=== PATIENT | female | born 1945 | race Caucasian/White ===

== ENCOUNTER 2017-08-20 10:00 | Emergency (ER) | payer OTHER, MEDICARE ==
[2017-08-20 10:10] VITALS: BP 134/61; PULSE 75; TEMP 97.7; BMI 17.8
--- NOTE | 2017-08-20 10:11 | PDOC ---
History of Present Illness - General Chief Complaint: Injury Stated Complaint: RT FOOT INJURY Time Seen by Provider: 08/20/17 10:10 - History of Present Illness Initial Comments: 08/20/17 10:12 Chief complaint: Injury to right foot History of present illness: Patient inadvertently kicked the leg of a table, injuring the dorsum of the foot. Complains of pain localized to the dorsum of the foot, pain with weightbearing and ambulation. Review of systems: No other injuries. Did not fall. No distal numbness tingling pain or weakness. Physical exam: There is approximately 2 cm area of swelling and tenderness with mild erythema, mid dorsum of the right foot. No deformity. Pulses full. No distal sensory or motor deficits. No other injuries noted to the foot, toes, ankle, calf, knee, thigh, or hip. No head or neck injuries. Impression: Contusion, rule out fracture X-ray and further orthopedic management depending on results. Past History - Past Medical History Allergies/Adverse Reactions: Allergies Allergy/AdvReac Type Severity Reaction Status Date / Time No Known Allergies Allergy Verified 08/20/17 10:04 Home Medications: Ambulatory Orders Atorvastatin Ca [Lipitor -] 10 mg PO DAILY 05/22/13 Salmeterol/Fluticasone [Advair 250Mcg/50Mcg] 2 inh PO BID 05/22/13 Bp Medication 1 tab PO AM 08/20/17 Bp Medication Number 2 1 tab PO HS 08/20/17 Anemia: No Asthma: Yes Cancer: No Cardiac Disorders: No CVA: No COPD: Yes CHF: No Dementia: No Diabetes: No GI Disorders: No Disorders: No HTN: Yes Hypercholesterolemia: Yes Liver Disease: No Seizures: No Thyroid Disease: No - Surgical History Abdominal Surgery: No Appendectomy: No Cardiac Surgery: No Cholecystectomy: No Lung Surgery: No Neurologic Surgery: No Orthopedic Surgery: Yes (RIGHT KNEE ARTHROSCOPY, RIGHT ELBOW TENDON REPAIR) - Suicide/Smoking/Psychosocial Hx Smoking History: Current every day smoker Have you smoked in the past 12 months: Yes Number of Cigarettes Smoked Daily: 15 Information on smoking cessation initiated: Yes 'Breaking Loose' booklet given: 08/20/17 Hx Alcohol Use: (occasional) Drug/Substance Use Hx: No Substance Use Type: None Hx Substance Use Treatment: No *Physical Exam - Vital Signs Last Vital Signs Temp Pulse Resp BP Pulse Ox 97.7 F 75 18 134/61 97 08/20/17 10:00 08/20/17 10:00 08/20/17 10:00 08/20/17 10:00 08/20/17 10:00 Medical Decision Making - Medical Decision Making 08/20/17 10:16 X-ray: Negative Josh applied, patient more comfortable, no distal numbness tingling or pain in the toes. Good toe motion. *DC/Admit/Observation/Transfer Diagnosis at time of Disposition: Contusion of right foot Qualifiers: Encounter type: initial encounter Qualified Code(s): S90.31XA - Contusion of right foot, initial encounter - Discharge Dispostion Disposition: HOME Condition at time of disposition: Stable Admit: No - Referrals Referrals: Bala Sparrow MD [Staff Physician] - 1 week - Patient Instructions Printed Discharge Instructions: DI for Contusion, How to Apply an Josh Wrap Additional Instructions: Rest, ice, elevate, Tylenol. Josh wrap as directed. Recheck if pain or swelling persists one-week orthopedic podiatrist as recommended. - Post Discharge Activity
== END 2017-08-20 11:03 | disposition home or self-care (01) ==
LOC: FER 10:00
DX: S90.31XA Contusion of right foot, initial encounter (principal); W22.03XA Walked into furniture, initial encounter; Y93.89 Activity, other specified; Y92.009 Unspecified place in unspecified non-institutional (private) residence as the place of occurrence of the external cause; E78.00 Pure hypercholesterolemia, unspecified; I10 Essential (primary) hypertension; J44.9 Chronic obstructive pulmonary disease, unspecified; F17.210 Nicotine dependence, cigarettes, uncomplicated
CPT/HCPCS: 73630-TC-RT; 99282-25

== ENCOUNTER 2018-08-09 13:23 | Emergency (ER) | payer OTHER, MEDICARE ==
[2018-08-09 13:35] VITALS: BP 152/57; TEMP 98.6; BMI 17.4
--- NOTE | 2018-08-09 15:14 | PDOC ---
History of Present Illness - General Chief Complaint: Pain Stated Complaint: rt foot no circulation Time Seen by Provider: 08/09/18 14:06 History Source: Patient Exam Limitations: No Limitations - History of Present Illness Initial Comments: 08/09/18 16:40 72 yo F with a hx of peripheral vascular disease recently started on cilostazol , COPD (lifelong smoker), HLD, and HTN presents to the emergency department with a cold right foot with 1st toe discoloration for the past 2 days. Per the patient, she states she was diagnosed with PVD 3-4 weeks ago due to right leg claudication. She states her right toe has turned black and returned to normal color intermittently throughout the 2 days. Her foot has felt "ice". Denies the following: fever, chills, SOB, chest pain, nausea, vomiting, visual changes, hx of afib, ears/nose/throat pain, abdominal pain, dysuria, hematuria, diarrhea, and hematochezia. Meds: cilostazol, amlodipine, advair, spirivia, atorvastatin, losartan Allergies: NKDA Social: Denies alcohol and substance abuse. 08/09/18 16:48 Past History - Past Medical History Allergies/Adverse Reactions: Allergies Allergy/AdvReac Type Severity Reaction Status Date / Time No Known Allergies Allergy Verified 08/09/18 13:32 Home Medications: Ambulatory Orders Atorvastatin Ca [Lipitor -] 10 mg PO DAILY 05/22/13 Amlodipine Besylate 5 mg PO ONCE 08/09/18 Aspirin 81 mg PO DAILY #30 tab.chew 08/09/18 Clopidogrel Bisulfate [Plavix] 75 mg PO DAILY #30 tablet 08/09/18 Fluticasone/Salmeterol [Advair Hfa 115-21 Mcg Inhaler] 1 inh PO BID 08/09/18 Losartan Potassium 25 mg PO ONCE 08/09/18 Tiotropium [place] [Spiriva] 1 inh PO DAILY 08/09/18 Anemia: No Asthma: Yes Cancer: No Cardiac Disorders: No CVA: No COPD: Yes CHF: No Dementia: No Diabetes: No GI Disorders: No Disorders: No HTN: Yes Hypercholesterolemia: Yes Liver Disease: No Seizures: No Thyroid Disease: No - Surgical History Abdominal Surgery: No Appendectomy: No Cardiac Surgery: No Cholecystectomy: No Lung Surgery: No Neurologic Surgery: No Orthopedic Surgery: Yes (RIGHT KNEE ARTHROSCOPY, RIGHT ELBOW TENDON REPAIR) - Immunization History Immunization Up to Date: Yes - Suicide/Smoking/Psychosocial Hx Smoking History: Current every day smoker Have you smoked in the past 12 months: Yes Number of Cigarettes Smoked Daily: 10 Information on smoking cessation initiated: No 'Breaking Loose' booklet given: 08/20/17 Hx Alcohol Use: No Drug/Substance Use Hx: No Substance Use Type: None Hx Substance Use Treatment: No Review of Systems - Review of Systems Able to Perform ROS?: Yes Is the patient limited Macedonian proficient: No Constitutional: No: Chills, Diaphoresis, Fever, Weakness HEENTM: No: Eye Pain, Recent change in vision, Ear Pain, Nose Pain, Throat Pain , Throat Swelling, Mouth Pain Respiratory: No: Cough, Shortness of Breath, SOB with Exertion, Hemoptysis Cardiac (ROS): No: Chest Pain, Lightheadedness, Palpitations, Syncope, Chest Tightness ABD/GI: No: Constipated, Diarrhea, Nausea, Poor Appetite, Poor Fluid Intake, Rectal Bleeding, Vomiting, Tarry Stools : No: Burning, Dysuria, Hematuria, Urgency Musculoskeletal: Yes: Muscle Pain (right calf with walking). No: Back Pain, Joint Pain, Neck Pain Integumentary: No: Bruising, Dryness, Erythema, Pruritus, Rash Neurological: No: Headache, Numbness, Paresthesia, Tingling, Tremors, Ataxia, Dizziness Psychiatric: No: Change in Appetite Endocrine: No: Unexplained Weight Gain Hematologic/Lymphatic: No: Anemia *Physical Exam - Vital Signs Last Vital Signs Temp Pulse Resp BP Pulse Ox 98.6 F 106 H 15 152/57 L 96 08/09/18 13:33 08/09/18 13:33 08/09/18 13:33 08/09/18 13:33 08/09/18 13:33 - Physical Exam General Appearance: Yes: Nourished, Appropriately Dressed. No: Apparent Distress, Intoxicated HEENT: positive: EOMI, RONN, Normal ENT Inspection, Normal Voice, Symmetrical, TMs Normal, Pharynx Normal, Hearing Grossly Normal. negative: Pale Conjunctivae , Scleral Icterus (R), Scleral Icterus (L), Muffled/Hoarse voice, Pharyngeal Erythema, Tonsillar Exudate, Tonsillar Erythema, Nasal Congestion, Rhinorrhea, Sinus Tenderness, Excessive drooling Neck: positive: Trachea midline. negative: Tender, Lymphadenopathy (R), Lymphadenopathy (L), Tender lateral, Tender midline Respiratory/Chest: positive: Lungs Clear, Normal Breath Sounds. negative: Chest Tender, Respiratory Distress, Accessory Muscle Use, Paradoxal Breathing, Crackles, Rales, Rhonchi, Stridor, Wheezing, Hyperresonant, Dullness Cardiovascular: positive: Regular Rhythm, Regular Rate, S1, S2. negative: Systolic Murmur Gastrointestinal/Abdominal: positive: Normal Bowel Sounds, Flat, Soft. negative : Tender, Guarding, Rebound, Tenderness, Hernia Lymphatic: negative: Adenopathy Musculoskeletal: positive: Normal Inspection. negative: CVA Tenderness, CVA Tenderness (R), CVA Tenderness (L), Vertebral Tenderness Extremity: positive: Other (reference integumentary note on LE) Integumentary: positive: Other (presents with complaints to the right foot. left foot had 2+ DP and PT pulses. right foot pulses difficult to detect. left foot was warm and the right foot was cold. patient's right foot showed pallor, but no black or johnson discolaration) Neurologic: positive: senior marketing associate II-XII NML intact, Fully Oriented, Alert, Normal Mood/ Affect, Normal Response, Motor Strength 5/5. negative: Abnormal Cranial NS, EOM Palsy, Sensory Deficit Moderate Sedation - Procedure Monitoring Vital Signs: Procedure Monitoring Vital Signs Temperature 98.6 F 08/09/18 13:33 Pulse Rate 106 H 08/09/18 13:33 Respiratory Rate 15 08/09/18 13:33 Blood Pressure 152/57 L 08/09/18 13:33 O2 Sat by Pulse Oximetry (%) 96 08/09/18 13:33 Heart Score/ECG Review - ECG Intrepretation Comment:: ventricular rate is 78 bpm, W[place] is 158 ms, QTc is 426 ms, and QRS is 78 ms. Sinus rhythm with PVCs with right axis deviation with old infarcts in the septal leads. no st elevations and depressions. ED Treatment Course - LABORATORY CBC & Chemistry Diagram: 08/09/18 15:06 08/09/18 15:06 Medical Decision Making - Medical Decision Making 72 yo F with a hx of peripheral vascular disease recently started on cilostazol , COPD (lifelong smoker), HLD, and HTN presents to the emergency department with a cold right foot with 1st toe discoloration for the past 2 days. Initial vitals: Initial Vital Signs Temp Pulse Resp BP Pulse Ox 98.6 F 106 H 15 152/57 L 96 08/09/18 13:33 08/09/18 13:33 08/09/18 13:33 08/09/18 13:33 08/09/18 13:33 Work up: ddx: DVT vs embolism in the right arterial vasculature Laboratory Tests 08/09/18 08/09/18 08/09/18 15:06 15:06 15:06 WBC 6.4 RBC 4.04 Hgb 13.8 Hct 39.2 MCV 97.0 H MCH 34.2 H MCHC 35.3 RDW 13.2 Plt Count 216 MPV 7.3 L Absolute Neuts (auto) 4.3 Neutrophils % 66.4 Lymphocytes % 20.5 Monocytes % 8.8 Eosinophils % 3.3 Basophils % 1.0 Nucleated RBC % 0 PT with INR 9.90 INR 0.84 PTT (Actin FS) 28.1 Sodium 141 Potassium 3.7 Chloride 106 Carbon Dioxide 25 Anion Gap 11 BUN 18 Creatinine 0.8 Creat Clearance w eGFR > 60 Random Glucose 94 Lactic Acid Calcium 8.4 L Total Bilirubin 0.4 AST 23 ALT 18 Alkaline Phosphatase 88 Creatine Kinase 124 Troponin I < 0.02 Total Protein 7.0 Albumin 4.0 Blood Type Antibody Screen 08/09/18 08/09/18 08/09/18 15:06 15:06 15:11 WBC RBC Hgb Hct MCV MCH MCHC RDW Plt Count MPV Absolute Neuts (auto) Neutrophils % Lymphocytes % Monocytes % Eosinophils % Basophils % Nucleated RBC % PT with INR INR PTT (Actin FS) Sodium Potassium Chloride Carbon Dioxide Anion Gap BUN Creatinine Creat Clearance w eGFR Random Glucose Lactic Acid 1.1 Calcium Total Bilirubin AST ALT Alkaline Phosphatase Creatine Kinase Troponin I Total Protein Albumin Blood Type A NEGATIVE A NEGATIVE Antibody Screen Positive labs within normal limits. cxr shows no acute processes save for a 5 mm hyperdense nodular density in the right midlung likely representing a calcified granuloma. duplex arterial in right leg shows diffuse moderate to marked atherosclerotic disease in RLE from common femoral to posterior tibial artery without significant stenosis. has monophasic waveform in the right common femoral artery to posterior tibial. Patient was evaluated by Dr. Yuen. he states no need for emergent surgery and that he can follow up with her in the office tomorrow for advanced imaging ( given patient's allergy to dye). Patient understood the plan and accepted it. At time of discharge, patient was able to ambulate on her own without pain in her right foot with appropriate perfusion to rule out emergency surgery. She was prescribed plavix and aspirin by the vascular team. Dispo: Discharge *DC/Admit/Observation/Transfer Diagnosis at time of Disposition: Right leg claudication - Discharge Dispostion Disposition: HOME Decision to Admit order: No - Prescriptions Prescriptions: Aspirin 81 mg PO DAILY #30 tab.chew Clopidogrel Bisulfate [Plavix] 75 mg PO DAILY #30 tablet - Referrals Referrals: Niles Yuen MD [Staff Physician] - [facility] [place] [facility] [place] [Provider Group] - Patient Instructions Additional Instructions: Follow-up with Dr. Yuen as at your scheduled appointment for next Wednesday. You are being prescribed a different medication to help with your circulation. Please take your plavix as prescribed as well as 81 mg of aspirin per day. Please discontinue your cilstazol (pletaal) medication that you were recently prescirbed. Return to the ER if your foot discoloration, pain, numbness or tingling worsens. If your foot feels cool to the touch and or is pale seek medical attention. - Post Discharge Activity
--- NOTE | 2018-08-09 15:34 | PDOC ---
Attending Attestation - Resident Resident Name: Brian Ha - ED Attending Attestation I have performed the following: I have examined & evaluated the patient, The case was reviewed & discussed with the resident, I agree w/resident's findings & plan, Exceptions are as noted - HPI HPI: 08/09/18 16:54 72 F with h/o peripheral vascular disease recently started on cilostazol, COPD ( lifelong smoker), HLD, and HTN, presenting with R foot discoloration. Pt states that 2 days ago she first noticed that her great toe was dark, the color of charcoal. This improved throughout the day. However, the next day, she noticed the ball of her foot was discolored as well. She spoke with her PMD who told her to come to the ED. Pt denies any significant pain or paresthesias. Pt states that the color has improved, though it is still slightly dark. She denies fever, chills, SOB, chest pain, nausea, vomiting, visual changes, hx of afib, ears/nose/throat pain, abdominal pain, dysuria, hematuria, diarrhea, and hematochezia. Allergies: NKDA Social: Denies alcohol and substance abuse. - Physicial Exam PE: 08/09/18 16:56 agree with resident exam - Medical Decision Making 08/09/18 16:56 72 F with PVD presenting with discoloration of R 1st toe and ball of foot. Pt has contrast allergy (anaphylaxis). Will obtain arterial dopplers. - Labs, lactate, coags - Arterial dopplers BLE - Vascular consult w/ Dr. Yuen
[2018-08-09 15:35] LABS: EOS % 3.3 % (0-4.5); HEMATOCRIT 39.2 % (32.4-45.2); HEMOGLOBIN 13.8 GM/dL (10.7-15.3); LYMPH % 20.5 % (8-40); MCH 34.2 pg (25.7-33.7); MCHC 35.3 g/dl (32.0-36.0); MEAN PLT VOLUME 7.3 fl (7.5-11.1); MONO % 8.8 % (3.8-10.2); NEUT % 66.4 % (42.8-82.8); PLATELET COUNT 216 K/MM3 (134-434); RBC 4.04 M/mm3 (3.60-5.2); RDW 13.2 % (11.6-15.6); WHITE BLOOD COUNT 6.4 K/mm3 (4.0-10.0)
[2018-08-09 15:58] LABS: ALK PHOS 88 U/L (45-117); ANION GAP 11 MMOL/L (8-16); BILIRUBIN,TOTAL 0.4 mg/dL (0.2-1); BLOOD UREA NITROGEN 18 mg/dL (7-18); CALCIUM 8.4 mg/dL (8.5-10.1); CHLORIDE 106 mmol/L (98-107); CO2 25 mmol/L (21-32); CREATININE 0.8 mg/dL (0.55-1.3); GLUCOSE,RANDOM 94 mg/dL (74-106); POTASSIUM 3.7 mmol/L (3.5-5.1); SGOT/AST 23 U/L (15-37); SGPT/ALT 18 U/L (13-61); SODIUM 141 mmol/L (136-145)
[2018-08-09 15:59] LABS: INR 0.84 (0.83-1.09); PROTHROMBIN TIME (PATIENT) 9.9 SEC (9.7-13.0)
[2018-08-09 16:02] LABS: ACTIVATED PTT 28.1 SECONDS (25.2-36.5)
--- NOTE | 2018-08-09 16:45 | CONSULT ---
<Chasity Carreno - Last Filed: 08/09/18 19:05> - Consultation REQUESTING PROVIDER: CONSULT REQUEST: We have been asked to surgically evaluate this patient for right foot pain. PCP: HISTORY OF PRESENT ILLNESS: The patient is a 72 yo female who presents to the ER with complaints of intermittent right foot discoloration over the past 2 days. She has had a chronic history of low back pain and has been receiving physical therapy. She denies any rest pain to the foot. Her leg will cramp up with pain when ambulating and improves with rest, but she isn't experiencing any rest pain symptoms. No weakness/numbness. The patient was recently started on pletaal and had an outpt arterial duplex study completed as an outpt. PMHx: COPD/chronic smoking history and current smoker. PSHx: cataracts, right arm biceps injury and left meniscus. Home Medications Medication Instructions Recorded Atorvastatin Ca [Lipitor -] 10 mg PO DAILY 05/22/13 Salmeterol/Fluticasone [Advair 2 inh PO BID 05/22/13 250Mcg/50Mcg] Bp Medication 1 tab PO AM 08/20/17 Bp Medication Number 2 1 tab PO HS 08/20/17 Allergies Allergy/AdvReac Type Severity Reaction Status Date / Time No Known Allergies Allergy Verified 08/09/18 13:32 REVIEW OF SYSTEMS: CARDIOVASCULAR: Absent: chest pain, syncope, palpitations, irregular heart rate RESPIRATORY: Absent: cough, shortness of breath HEMATOLOGIC/IMMUNOLOGIC: Absent: easy bleeding, easy bruising NEUROLOGIC: Absent: focal weakness PHYSICAL EXAM: GENERAL: Awake, alert, and fully oriented, in no acute distress. UPPER EXTREMITIES: 2+ pulses, warm, well-perfused. No cyanosis. Cap refill <2 seconds. No peripheral edema. LOWER EXTREMITIES: 1+ DP/PT with doppler on the right, forefoot cool/toes cool to touch with great toe discoloration. Left foot +2 DP/PT pulse with doppler and foot warm to touch. +2 b/l femoral pulses. NEUROLOGICAL: Normal speech, gait steady. 5/5 dorsi/plantar flexion b/l. PSYCH: Cooperative. Good eye contact. Appropriate mood and affect. Vital Signs Temperature 98.6 F 08/09/18 13:33 Pulse Rate 106 H 08/09/18 13:33 Respiratory Rate 15 08/09/18 13:33 Blood Pressure 152/57 L 08/09/18 13:33 O2 Sat by Pulse Oximetry (%) 96 08/09/18 13:33 Lab Results WBC 6.4 K/mm3 (4.0-10.0) 08/09/18 15:06 RBC 4.04 M/mm3 (3.60-5.2) 08/09/18 15:06 Hgb 13.8 GM/dL (10.7-15.3) 08/09/18 15:06 Hct 39.2 % (32.4-45.2) 08/09/18 15:06 MCV 97.0 fl (80-96) H 08/09/18 15:06 MCHC 35.3 g/dl (32.0-36.0) 08/09/18 15:06 RDW 13.2 % (11.6-15.6) 08/09/18 15:06 Plt Count 216 K/MM3 (134-434) 08/09/18 15:06 Sodium 141 mmol/L (136-145) 08/09/18 15:06 Potassium 3.7 mmol/L (3.5-5.1) 08/09/18 15:06 Chloride 106 mmol/L (98-107) 08/09/18 15:06 Carbon Dioxide 25 mmol/L (21-32) 08/09/18 15:06 Anion Gap 11 MMOL/L (8-16) 08/09/18 15:06 BUN 18 mg/dL (7-18) 08/09/18 15:06 Creatinine 0.8 mg/dL (0.55-1.3) 08/09/18 15:06 Random Glucose 94 mg/dL (74-106) 08/09/18 15:06 Calcium 8.4 mg/dL (8.5-10.1) L 08/09/18 15:06 INR 0.84 (0.83-1.09) 08/09/18 15:06 Problem List - Problems (1) Claudication in peripheral vascular disease Assessment/Plan: Pt seen and examined with Dr. Yuen while in the ER. Arterial duplex study reviewed, limited study completed only RPTA below the knee examined. PT with monophasic pulses to the right foot with doppler exam today, no rest pain. Chronic ischemia to her RLE with most likely progressive disease. The patient continues to smoke on a daily basis. She will need further workup but may be done as an outpt. Care plan d/w the patient, ER resident and Dr. Yuen. The patient was advised to maintain her followup appointment with Dr. Yuen next week on Wednesday. Her medications will be changed to include aspirin 81 mg daily, plavix 75 mg daily and discontinue her pletaal. He will arrange for an angiogram with CO2 in his office given her IV contrast dye allergy. She was advised to return to the ER for any worsening of pain, coolness, numbness or tingling to her lower extremitites Code(s): I73.9 - PERIPHERAL VASCULAR DISEASE, UNSPECIFIED <Niles Yuen - Last Filed: 08/10/18 19:26> - Consultation REQUESTING PROVIDER: CONSULT REQUEST: We have been asked to surgically evaluate this patient for ( specify). PCP: HISTORY OF PRESENT ILLNESS: PMHx: PSHx: Home Medications Medication Instructions Recorded Atorvastatin Ca [Lipitor -] 10 mg PO DAILY 05/22/13 Amlodipine Besylate 5 mg PO ONCE 08/09/18 Aspirin 81 mg PO DAILY #30 tab.chew 08/09/18 Clopidogrel Bisulfate [Plavix] 75 mg PO DAILY #30 tablet 08/09/18 Fluticasone/Salmeterol [Advair Hfa 1 inh PO BID 08/09/18 115-21 Mcg Inhaler] Losartan Potassium 25 mg PO ONCE 08/09/18 Tiotropium [place] [Spiriva] 1 inh PO DAILY 08/09/18 Allergies Allergy/AdvReac Type Severity Reaction Status Date / Time No Known Allergies Allergy Verified 08/09/18 13:32 REVIEW OF SYSTEMS: CONSTITUTIONAL: Absent: fever, chills, diaphoresis, generalized weakness, malaise, loss of appetite, weight change CARDIOVASCULAR: Absent: chest pain, syncope, palpitations, irregular heart rate, lightheadedness , peripheral edema RESPIRATORY: Absent: cough, shortness of breath, dyspnea with exertion, wheezing, stridor, hemoptysis GASTROINTESTINAL: Absent: abdominal pain, abdominal distension, nausea, vomiting, diarrhea, constipation, melena, hematochezia GENITOURINARY: Absent: dysuria, frequency, urgency, hesitancy, hematuria, flank pain, genital pain MUSCULOSKELETAL: Absent: myalgia, arthralgia, joint swelling, back pain, neck pain SKIN: Absent: rash, itching, pallor HEMATOLOGIC/IMMUNOLOGIC: Absent: easy bleeding, easy bruising, lymphadenopathy NEUROLOGIC: Absent: headache, focal weakness, paresthesias, dizziness, unsteady gait, seizure, mental status changes, bladder or bowel incontinence PSYCHIATRIC: Absent: anxiety, depression, suicidal or homicidal ideation, hallucinations. PHYSICAL EXAM: GENERAL: Awake, alert, and fully oriented, in no acute distress. HEAD: Normal with no signs of trauma. EYES: PERRL, sclera anicteric, conjunctiva clear. NECK: Normal ROM, supple without lymphadenopathy, JVD, or masses. LUNGS: Clear to auscultation bilat anteriorly. No wheezes, and no crackles. No accessory muscle use. HEART: Regular rate and rhythm. No murmurs ABDOMEN: Soft, nontender, not distended, normoactive bowel sounds, no guarding, no rebound, no masses. No organomegaly. MUSCULOSKELETAL: Normal ROM at all joints. No bony deformities or tenderness. No CVA tenderness. UPPER EXTREMITIES: 2+ pulses, warm, well-perfused. No cyanosis. Cap refill <2 seconds. No peripheral edema. LOWER EXTREMITIES: 2+ pulses, warm, well-perfused. No calf tenderness. No peripheral edema. NEUROLOGICAL: Normal speech, gait not observed. PSYCH: Cooperative. Good eye contact. Appropriate mood and affect. SKIN: Warm, dry, normal turgor, no rashes or lesions noted. Vital Signs Temperature 98.6 F 08/09/18 13:33 Pulse Rate 90 08/09/18 18:45 Respiratory Rate 15 08/09/18 13:33 Blood Pressure 152/57 L 08/09/18 13:33 O2 Sat by Pulse Oximetry (%) 96 08/09/18 13:33 Lab Results WBC 6.4 K/mm3 (4.0-10.0) 08/09/18 15:06 RBC 4.04 M/mm3 (3.60-5.2) 08/09/18 15:06 Hgb 13.8 GM/dL (10.7-15.3) 08/09/18 15:06 Hct 39.2 % (32.4-45.2) 08/09/18 15:06 MCV 97.0 fl (80-96) H 08/09/18 15:06 MCHC 35.3 g/dl (32.0-36.0) 08/09/18 15:06 RDW 13.2 % (11.6-15.6) 08/09/18 15:06 Plt Count 216 K/MM3 (134-434) 08/09/18 15:06 Sodium 141 mmol/L (136-145) 08/09/18 15:06 Potassium 3.7 mmol/L (3.5-5.1) 08/09/18 15:06 Chloride 106 mmol/L (98-107) 08/09/18 15:06 Carbon Dioxide 25 mmol/L (21-32) 08/09/18 15:06 Anion Gap 11 MMOL/L (8-16) 08/09/18 15:06 BUN 18 mg/dL (7-18) 08/09/18 15:06 Creatinine 0.8 mg/dL (0.55-1.3) 08/09/18 15:06 Random Glucose 94 mg/dL (74-106) 08/09/18 15:06 Calcium 8.4 mg/dL (8.5-10.1) L 08/09/18 15:06 Blood Type A NEGATIVE 08/09/18 15:06 Antibody Screen Positive 08/09/18 15:06 INR 0.84 (0.83-1.09) 08/09/18 15:06 History reviewed and patient examined. 72 year old smoker with chronic pain and discoloration of right foot. On exam foot is warm and normal color and capillary refill. Duplex shows patent femoral and popliteal arteries with depressed flow suggesting in flow disease. Patient has contrast allergy and is high risk for CTA. She can be discharged and I will get high quality Duplex in office with possible angiogram using CO2.
--- NOTE | 2018-08-09 16:54 | PDOC ---
Attending Attestation - Resident Resident Name: Brian Ha - ED Attending Attestation I have performed the following: I have examined & evaluated the patient, The case was reviewed & discussed with the resident, I agree w/resident's findings & plan, Exceptions are as noted
[2018-08-09 18:46] VITALS: PULSE 90
--- NOTE | 2018-08-10 13:23 | EKG ---
Test Reason : Blood Pressure : / mmHG Vent. Rate : 078 BPM Atrial Rate : 078 BPM P-R Int : 158 ms QRS Dur : 078 ms QT Int : 374 ms P-R-T Axes : 080 093 069 degrees QTc Int : 426 ms SINUS RHYTHM WITH OCCASIONAL PREMATURE VENTRICULAR COMPLEXES POSSIBLE LEFT ATRIAL ENLARGEMENT RIGHTWARD AXIS PULMONARY DISEASE PATTERN SEPTAL INFARCT , AGE UNDETERMINED ABNORMAL ECG NO PREVIOUS ECGS AVAILABLE Confirmed by ADILENE GALICIA, MARK ([id number] on 08/10/2018 1:22:35 PM Referred By: Confirmed By:MARK HEAD MD
== END 2018-08-09 18:46 | disposition home or self-care (01) ==
LOC: JER 13:23
DX: I73.89 Other specified peripheral vascular diseases (principal); I10 Essential (primary) hypertension; E78.5 Hyperlipidemia, unspecified; J44.9 Chronic obstructive pulmonary disease, unspecified; J45.909 Unspecified asthma, uncomplicated
CPT/HCPCS: 36415; 71045-TC-FY; 80053; 82550; 83605; 84484; 85025; 85610; 85730; 86850; 86870; 86900; 86901; 86902; 93005; 93010; 93925-TC; 99282-25

== ENCOUNTER 2018-09-28 06:07 | Inpatient (IN) | payer OTHER, MEDICARE ==
[2018-09-27 09:09] VITALS: BMI 17.1
[2018-09-28] MEDS ORDERED: CEFAZOLIN 1 GM/D5W 1 GM/50 ML BAG ONE (06:53)
[2018-09-28] MEDS ORDERED: CEFAZOLIN 1 GM/D5W 1 GM/50 ML BAG IVPB ONE (06:57)
[2018-09-28] MEDS ORDERED: LIDOCAINE HCL 1%, 10 MG/ML (20ML VIAL) ONE (07:22)
[2018-09-28] MEDS ORDERED: HEPARIN NA (PORCINE) 5,000 UNITS/ML 1ML VIAL ONE ×2 (07:22→07:41)
[2018-09-28] MEDS ORDERED: PROPOFOL 20 ML ONE (07:40)
[2018-09-28] MEDS ORDERED: ROCURONIUM BROMIDE 50 MG/5 ML VIAL ONE (07:40)
[2018-09-28] MEDS ORDERED: MIDAZOLAM HCL 2 MG/2 ML SINGLE DOSE VIAL ONE (07:40)
[2018-09-28] MEDS ORDERED: ceFAZolin SODIUM 1 GM VIAL ONE (07:41)
[2018-09-28] MEDS ORDERED: LIDOCAINE HCL/PF 2% SDV 5ML VIAL ONE (07:41)
[2018-09-28] MEDS ORDERED: SODIUM CHLORIDE 0.9% P/F 10 ML VIAL IJ ONE (07:41)
[2018-09-28] MEDS ORDERED: HYDROCORTISONE SOD SUCCINATE 2 ML ONE (07:42)
[2018-09-28] MEDS ORDERED: ceFAZolin SODIUM 1 GM VIAL IVPB ONE (08:40)
[2018-09-28] MEDS ORDERED: ePHEDrine SULFATE 50 MG/1 ML AMPULE ONE (09:18)
--- NOTE | 2018-09-28 10:19 | HP ---
Admitting History and Physical - Admission History of Present Illness: 72 year old woman with pain and discoloration of right 1st toe for several months. 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 She smokes daily and is trying to quit. History Source: Patient Limitations to Obtaining History: No Limitations - Past Medical History Cardiovascular: Yes: HTN - Smoking History Smoking history: Current every day smoker Have you smoked in the past 12 months: Yes Aproximately how many cigarettes per day: 10 - Alcohol/Substance Use Hx Alcohol Use: Yes (occas) Home Medications - Allergies Allergies/Adverse Reactions: Allergies Allergy/AdvReac Type Severity Reaction Status Date / Time Iodinated Contrast- Oral and Allergy Unknown Verified 09/27/18 09:22 IV Dye mold Allergy Verified 09/27/18 09:22 pollen extracts Allergy Verified 09/27/18 09:22 - Home Medications Home Medications: Ambulatory Orders Atorvastatin Ca [Lipitor -] 10 mg PO DAILY 05/22/13 Amlodipine Besylate 5 mg PO ONCE 08/09/18 Aspirin 81 mg PO DAILY #30 tab.chew 08/09/18 Clopidogrel Bisulfate [Plavix] 75 mg PO DAILY #30 tablet 08/09/18 Fluticasone/Salmeterol [Advair Hfa 115-21 Mcg Inhaler] 1 inh PO BID 08/09/18 Losartan Potassium 25 mg PO ONCE 08/09/18 Tiotropium [place] [Spiriva] 1 inh PO DAILY 08/09/18 Prednisone [Prednisone 50 MG TABLETS] 50 mg PO ASDIR 09/27/18 Physical Examination Vital Signs: Vital Signs Temperature 97.9 F 09/28/18 06:50 Pulse Rate 82 09/28/18 06:50 Respiratory Rate 20 09/28/18 06:50 Blood Pressure 123/68 09/28/18 06:50 O2 Sat by Pulse Oximetry (%) 99 09/28/18 07:18 Constitutional: Yes: Thin Eyes: Yes: WNL HENT: Yes: WNL Neck: Yes: Supple Cardiovascular: Yes: Regular Rate and Rhythm Respiratory: Yes: Regular Gastrointestinal: Yes: Soft Extremities: Yes: Cold (right foot), Cyanosis (right 1st toe) Peripheral Pulses WNL: No Peripheral Pulses: Left Femoral: 2+, Right Femoral: 0 Problem List - Problems (1) Aortoiliac occlusive disease Assessment/Plan: Severe atherosclerosis of aorta and iiac arteries. Plan endovascular stenting distal aorta and bilateral iliac arteries. Code(s): I74.09 - OTHER ARTERIAL EMBOLISM AND THROMBOSIS OF ABDOMINAL AORTA
--- NOTE | 2018-09-28 10:21 | OP ---
Operative Note - Note: Operative Date: 09/28/18 Pre-Operative Diagnosis: Aortoiliac occlusive disease Operation: Percutaneous access bilateral femoral arteries. Revascularization aorta and bilateral iliac arteries with balloon expandable covered stents Findings: Severe stenosis distal aorta with occlusion right common iliac artery and severe stenosis of proximal left common iliac artery. Patent external iliac and femoral arteries bilaterally. Implants: 11 mm x 59 mm VBX in aorta, 8 mm x 59 mm VBX right iliac, 8 mm x 39 mm VBX left iliac Post-Operative Diagnosis: Same as Pre-op Surgeon: Niles Yuen Supervisor Hand Silvering: Moris Mars Anesthesiologist/UNDERCOVER OPERATOR: Jessica Abbasi Anesthesia: General Estimated Blood Loss (mls): 20
[2018-09-28] MEDS ORDERED: ACETAMINOPHEN 325 MG TABLET (FP) PO PRN ×2 (10:24→10:41)
[2018-09-28] MEDS ORDERED: ONDANSETRON 4 MG/2 ML VIAL IVPUSH PRN (10:25)
[2018-09-28] MEDS ORDERED: oxyCODONE HCL 5 MG TABLET PO PRN (10:40)
--- NOTE | 2018-09-28 10:48 | CONSULT ---
Consultation: REQUESTING PROVIDER: Dr. Yuen CONSULT REQUEST: We have been asked to medically evaluate this patient for ICU monitoring post-op HISTORY OF PRESENT ILLNESS: 72 yo female with PMH HTN, HLD, COPD, PAD admitted to the ICU POD 0 b/l endovascular revascularization aorta and b/l iliac arteries with balloon expandable covered stents. There were no intraoperative complications and patient claims to be doing well with no complaints of pain or respiratory distress post-op. As per chart pt had pain and discoloration of 1st toe for several months prior to procedure. Pt is a daily smoker and states she is attempting to quit with cough drops. REVIEW OF SYSTEMS: Unable to obtain secondary to anesthetic use during OR, pt still very drowsy PHYSICAL EXAMINATION Vital Signs - 24 hr 09/28/18 09/28/18 09/28/18 06:50 07:02 07:18 Temperature 97.9 F Pulse Rate 82 Respiratory 20 Rate Blood Pressure 123/68 O2 Sat by Pulse 99 99 Oximetry (%) 09/28/18 10:00 Temperature 97.2 F L Pulse Rate 84 Respiratory 20 Rate Blood Pressure 131/64 O2 Sat by Pulse Oximetry (%) GEN: Awake, minimally alert, still slightly sedated from anesthetic HEENT: Dry mucus membranes NECK: supple HEART: RRR, no murmurs noted LUNGS: CTA b/l ABDOMEN: Soft, nontender, normoactive bowel sounds EXTREMITIES: good dopplar DP pulses b/l with sites marked by X Laboratory Results - last 24 hr 09/28/18 06:33 Blood Type A NEGATIVE Antibody Screen Positive Antibody Identification D Antigen Identification No Result Required. Crossmatch See Detail Active Medications Generic Name Dose Route Start Last Admin Trade Name Freq PRN Reason Stop Dose Admin Acetaminophen 650 mg 09/28/18 10:24 Tylenol - PO Q4H PRN FEVER Acetaminophen 325 mg 09/28/18 10:41 Tylenol - PO Q4H PRN PAIN LEVEL 1-5 Amlodipine Besylate 5 mg 09/28/18 10:30 Norvasc - PO DAILY [facility] Aspirin 81 mg 09/29/18 10:00 Asa - PO DAILY [facility] Atorvastatin Calcium 10 mg 09/29/18 22:00 Lipitor - PO HS [facility] Clopidogrel Bisulfate 75 mg 09/29/18 10:00 Plavix - PO DAILY [facility] Enoxaparin Sodium 40 mg 09/29/18 10:00 Lovenox - SQ DAILY [facility] Fentanyl 25 mcg 09/28/18 10:25 Sublimaze Injection - IVPUSH [id number] PRN PAIN-PACU ORDER X 4 DOSES ONLY Cefazolin Sodium 1 gm in 50 mls @ 100 mls/hr 09/28/18 18:00 Ancef 1 Gm Premixed Ivpb - IVPB 09/29/18 02:29 Q8H-IV ANDREA Lactated Ringer's 1,000 mls @ 75 mls/hr 09/28/18 10:30 Lactated Ringers Solution IV ASDIR [facility] Losartan Potassium 25 mg 09/28/18 10:30 Cozaar - PO DAILY ANDREA Non-Formulary Medication 1 inh 09/28/18 22:00 Fluticasone/Salmeterol [Advair Hfa 115-21 Mcg Inhaler] PO BID ANDREA Non-Formulary Medication 1 inh 09/29/18 10:00 Tiotropium [place] [Spiriva] PO DAILY [facility]A Ondansetron HCl 4 mg 09/28/18 10:25 Zofran Injection IVPUSH Q6H PRN NAUSEA AND/OR VOMITING Oxycodone HCl 5 mg 09/28/18 10:25 Roxicodone - PO Q4H PRN PAIN LEVEL 1-5 Oxycodone HCl 5 mg 09/28/18 10:40 Roxicodone - PO Q4H PRN PAIN LEVEL 1-5 ASSESSMENT/PLAN: 72 yo female with PMH HTN, HLD, COPD, PAD admitted to the ICU POD 0 b/l endovascular revascularization aorta and b/l iliac arteries with balloon expandable covered stents NEURO -currently recovering from sedation, monitor neuro status CARDIOVASCULAR -HTN Norvasc 5 mg PO Daily Losartan 25 mg PO Daily -HLD Lipitor 10 mg HS PO -PAD ASA/Plavix PULMONARY -COPD Continue home Advair/Spiriva GI -Monitor for signs of ileus POST OP CARE -Pain control - Oxycodone/Tylenol as per surgery -Incentive spirometry -d/c danielle later today -bed rest for 2 hours post-op -Zofran PRN for nausea FEN -LR @ 75 cc/hr -monitor and replete -Resume regular diet for dinner PROPHYLAXIS -Lovenox 40 mg SQ Daily LINES/CATHETERS -Danielle can be removed later today as per surgery DISPOSITION ICU monitoring overnight Visit type - Emergency Visit Emergency Visit: Yes ED Registration Date: 09/28/18 Care time: The patient presented to the Emergency Department on the above date and was hospitalized for further evaluation of their emergent condition. - New Patient This patient is new to me today: Yes Date on this admission: 09/28/18 - Critical Care Critical Care patient: Yes Total Critical Care Time (in minutes): 35 Critical Care Statement: The care of this patient involved high complexity decision making to prevent further life threatening deterioration of the patient 's condition and/or to evaluate & treat vital organ system(s) failure or risk of failure.
--- NOTE | 2018-09-28 10:53 | SURG ---
Surgery Skin Carver Note Skin Carver: Moris Mars PA-C Date of Service: 09/28/18 Diagnosis: Aortoiliac occlusive disease Procedure: Percutaneous access bilateral femoral arteries. Revascularization aorta and bilateral iliac arteries with balloon expandable covered stents I was present for the entirety of the operative procedure. For further detail, please refer to operative report. Visit type - Case Type Case Type: Scheduled - New patient This patient is new to me today: Yes Date on this admission: 09/28/18
[2018-09-28] MEDS: LACTATED RINGERS SOLUTION 1,000 ML IV SCH (11:29)
[2018-09-28] MEDS: amLODIPine BESYLATE 5 MG TABLET (FP) PO SCH (11:29)
[2018-09-28] MEDS: LOSARTAN POTASSIUM 25 MG TABLET PO SCH (11:29)
[2018-09-28] MEDS: oxyCODONE HCL 5 MG TABLET PO PRN ×2 (12:21→23:09)
[2018-09-28] MEDS ORDERED: BUPIVACAINE HCL/PF 0.5% (5MG/ML) 10 ML VIAL ONE (14:30)
[2018-09-28] MEDS ORDERED: PT OWN MED DRAWER 7, Y5N ONE (17:03)
[2018-09-28] MEDS: CEFAZOLIN 1 GM/D5W 1 GM/50 ML BAG IVPB SCH (17:15)
[2018-09-28] MEDS ORDERED: NICOTINE 14 MG/24 HOURS TOPICAL PATCH TD SCH (18:00)
[2018-09-28] MEDS ORDERED: PATIENT'S OWN MEDICATION (NON-FORMULARY) (Fluticasone/Salmeterol [Advair Hfa 115-21 Mcg In PO SCH (22:00)
[2018-09-29] MEDS: CEFAZOLIN 1 GM/D5W 1 GM/50 ML BAG IVPB SCH (02:11)
[2018-09-29 06:08] LABS: HEMATOCRIT 33.5 % (32.4-45.2); HEMOGLOBIN 11.8 GM/dL (10.7-15.3); MCH 34.4 pg (25.7-33.7); MCHC 35.2 g/dl (32.0-36.0); MEAN CELL VOLUME 97.9 fl (80-96); MEAN PLT VOLUME 7.2 fl (7.5-11.1); PLATELET COUNT 257 K/MM3 (134-434); RBC 3.42 M/mm3 (3.60-5.2); RDW 13.2 % (11.6-15.6); WHITE BLOOD COUNT 11.4 K/mm3 (4.0-10.0)
[2018-09-29 07:04] LABS: ALK PHOS 62 U/L (45-117); ANION GAP 5 MMOL/L (8-16); BILIRUBIN,TOTAL 0.3 mg/dL (0.2-1); BLOOD UREA NITROGEN 13 mg/dL (7-18); CALCIUM 8.3 mg/dL (8.5-10.1); CHLORIDE 108 mmol/L (98-107); CO2 28 mmol/L (21-32); CREATININE 0.6 mg/dL (0.55-1.3); GLUCOSE,RANDOM 101 mg/dL (74-106); POTASSIUM 4.3 mmol/L (3.5-5.1); SGOT/AST 10 U/L (15-37); SGPT/ALT 14 U/L (13-61); SODIUM 141 mmol/L (136-145); TOT PROT 5.8 g/dl (6.4-8.2)
--- NOTE | 2018-09-29 07:58 | PN ---
Progress Note (short form) - Note Progress Note: POD 1, s/p Percutaneous access bilateral femoral arteries. Revascularization aorta and bilateral iliac arteries with balloon expandable covered stents Pt seen and examined. States she is feeling well this morning. Reports no issues overnight. Was oob multiple times to the restroom. Tolerating PO without n/v. Denies cp/sob, le pain, decreased le motor/sensation. Reports her feet feel "better". Has some mild pressure in her abdomen and lower back. Vital Signs Temp 98 F 09/29/18 06:00 Pulse 67 09/29/18 06:00 Resp 18 09/29/18 06:00 BP 116/53 L 09/29/18 06:00 Pulse Ox 96 09/28/18 20:14 Intake & Output 09/28/18 09/28/18 09/29/18 11:59 23:59 11:59 Intake Total 1000 1330 950 Output Total 250 320 Balance 750 1010 950 Intake: IV 1000 500 900 Lactated Ringers Solution 500 900 1,000 ml @ 75 mls/hr IV ASDIR ANDREA Rx#:[id number] IVPB 50 50 Oral 780 Output: Urine 230 320 [place] 30 320 Estimated Blood Loss 20 Other: Voiding Method Indwelling Catheter Toilet Toilet # Unmeasured Voids Void 3 3 CBC, BMP 09/29/18 05:30 09/29/18 05:30 Gen: awake, alert, nad Resp: unlabored on RA Abdo: soft, nt/nd, + bowel sounds Groin: b/l puncture sites c/d/i, R groin with some ecchymosis. No palpable hematomas b/l. LE: 5/5 dorsiflexion/plantarflexion, hip ext 5/5 b/l, SILT Vasc: Palpable b/l femoral pulses. B/L dp/pt pulse appreciated with doppler, b/ l feet warm, well perfused. Mild discoloration over medial portion of R great toe (present before surgery per pt) A/P:72 y/o F w/ PMHx HTN, HLD, COPD, PAD now POD 1, s/p Percutaneous access bilateral femoral arteries. Revascularization aorta and bilateral iliac arteries with balloon expandable covered stents. Afebrile, VSS. Labs wnl. Stable exam. D/c today, Dr Yuen will be by to see pt prior
--- NOTE | 2018-09-29 08:26 | PN ---
Physical Exam: SUBJECTIVE: Patient seen and examined this morning. She states she is having no pain, ambulating well, and tolerating her diet. OBJECTIVE: Vital Signs Period Temp Pulse Resp BP Sys/Baker Pulse Ox Last 24 Hr 97 F-98.5 F 67-88 18-22 108-136/42-88 92-100 GEN: A&O, no acute distress HEENT: moist mucus membranes NECK: supple HEART: RRR, no murmurs noted LUNGS: CTA b/l ABDOMEN: Soft, nontender, normoactive bowel sounds EXTREMITIES: minimal echymoses b/l surgical sites, no bleeding or hematoma, good dopplar DP pulses b/l Laboratory Results - last 24 hr 09/28/18 09/29/18 09/29/18 06:33 05:30 05:30 WBC 11.4 H RBC 3.42 L Hgb 11.8 Hct 33.5 MCV 97.9 H MCH 34.4 H MCHC 35.2 RDW 13.2 Plt Count 257 MPV 7.2 L Sodium 141 Potassium 4.3 Chloride 108 H Carbon Dioxide 28 Anion Gap 5 L BUN 13 Creatinine 0.6 Creat Clearance w eGFR > 60 Random Glucose 101 Calcium 8.3 L Total Bilirubin 0.3 AST 10 L ALT 14 Alkaline Phosphatase 62 Total Protein 5.8 L Albumin 3.0 L Blood Type A NEGATIVE Antibody Screen Positive Antibody Identification Anti-D Antigen Identification No Result Required. Crossmatch See Detail Active Medications Generic Name Dose Route Start Last Admin Trade Name Freq PRN Reason Stop Dose Admin Acetaminophen 650 mg 09/28/18 10:24 Tylenol - PO Q4H PRN FEVER Acetaminophen 325 mg 09/28/18 10:41 Tylenol - PO Q4H PRN PAIN LEVEL 1-5 Amlodipine Besylate 5 mg 09/28/18 10:30 09/28/18 11:29 Norvasc - PO 5 mg DAILY ANDREA Administration Aspirin 81 mg 09/29/18 10:00 Asa - PO DAILY [facility] Atorvastatin Calcium 10 mg 09/29/18 22:00 Lipitor - PO HS ANDREA Clopidogrel Bisulfate 75 mg 09/29/18 10:00 Plavix - PO DAILY [facility] Enoxaparin Sodium 40 mg 09/29/18 10:00 Lovenox - SQ DAILY [facility] Lactated Ringer's 1,000 mls @ 75 mls/hr 09/28/18 10:30 09/28/18 11:29 Lactated Ringers Solution IV 75 mls/hr ASDIR ANDREA Administration Losartan Potassium 25 mg 09/28/18 10:30 09/28/18 11:29 Cozaar - PO 25 mg DAILY ANDREA Administration Nicotine 14 mg 09/28/18 18:00 09/28/18 18:15 Nicoderm Patch - TD 14 mg DAILY@1800 ANDREA Administration Non-Formulary Medication 1 inh 09/28/18 22:00 Fluticasone/Salmeterol [Advair Hfa 115-21 Mcg Inhaler] PO BID [facility]REA Ondansetron HCl 4 mg 09/28/18 10:25 Zofran Injection IVPUSH Q6H PRN NAUSEA AND/OR VOMITING Oxycodone HCl 5 mg 09/28/18 10:25 09/28/18 23:09 Roxicodone - PO 5 mg Q4H PRN Administration PAIN LEVEL 1-5 Oxycodone HCl 5 mg 09/28/18 10:40 Roxicodone - PO Q4H PRN PAIN LEVEL 1-5 Tiotropium [place] 2 puff 09/29/18 10:00 Spiriva Respimat IH DAILY [facility]REA ASSESSMENT/PLAN: 72 yo female with PMH HTN, HLD, COPD, PAD admitted to the ICU POD 0 b/l endovascular revascularization aorta and b/l iliac arteries with balloon expandable covered stents NEURO -Awake and alert, no neurological deficits CARDIOVASCULAR -HTN Norvasc 5 mg PO Daily Losartan 25 mg PO Daily -HLD Lipitor 10 mg HS PO -PAD ASA/Plavix PULMONARY -COPD Continue home Advair/Spiriva GI -Tolerating diet well, flatus but no stool yet POST OP CARE -Pain control - can take tylenol on d/c -Incentive spirometry FEN -LR @ 75 cc/hr -monitor and replete -Tolerating regular diet PROPHYLAXIS -Lovenox 40 mg SQ Daily LINES/CATHETERS -none DISPOSITION Stable for discharge as per vascular surgery Visit type - Emergency Visit Emergency Visit: No - New Patient This patient is new to me today: No - Critical Care Critical Care patient: No
--- NOTE | 2018-09-29 08:27 | PN ---
Progress Note (short form) - Note Progress Note: POD 1 VSS Right groin ecchymosis, no mass. Femoral pulses 2+ bilat Feet warm, doppler flow intact Hgb stable OK for discharge home today. Problem List - Problems (1) Aortoiliac occlusive disease Code(s): I74.09 - OTHER ARTERIAL EMBOLISM AND THROMBOSIS OF ABDOMINAL AORTA
[2018-09-29] MEDS ORDERED: PT OWN MED DRAWER 7, Y5N ONE (09:18)
[2018-09-29] MEDS: amLODIPine BESYLATE 5 MG TABLET (FP) PO SCH (09:42)
[2018-09-29] MEDS: LOSARTAN POTASSIUM 25 MG TABLET PO SCH (09:42)
[2018-09-29] MEDS ORDERED: CLOPIDOGREL BISULFATE 75 MG TABLET (FP) PO SCH (10:00)
[2018-09-29] MEDS ORDERED: TIOTROPIUM BROMIDE 2.5 MCG (SPIRIVA) RESPIMAT INHALER IH SCH (10:00)
[2018-09-29] MEDS ORDERED: ASPIRIN 81 MG CHEWABLE TABLETS PO SCH (10:00)
[2018-09-29] MEDS ORDERED: ENOXAPARIN NA (PORCINE) 40 MG/0.4 ML DISP.SYRIN SQ SCH (10:00)
[2018-09-29 10:15] VITALS: TEMP 98.1
[2018-09-29 12:14] VITALS: BP 101/66; PULSE 81
--- NOTE | 2018-09-29 12:38 | PN ---
Teaching Attending Note Name of Resident: Wilver Aguilera ATTENDING PHYSICIAN STATEMENT I saw and evaluated the patient. I reviewed the resident's note and discussed the case with the resident. I agree with the resident's findings and plan as documented. SUBJECTIVE: Feels well. Minimal discomfort at the surgical site. Seen by vascular surgery this AM. Intake & Output 09/26/18 09/27/18 09/28/18 09/29/18 23:59 23:59 23:59 23:59 Intake Total 2330 950 Output Total 570 Balance 1760 950 Weight 103 lb Last Vital Signs Temp Pulse Resp BP Pulse Ox 98.1 F 81 18 101/66 96 09/29/18 10:09 09/29/18 12:13 09/29/18 12:13 09/29/18 12:13 09/29/18 09:00 Active Medications Acetaminophen (Tylenol -) 650 mg PO Q4H PRN PRN Reason: FEVER Acetaminophen (Tylenol -) 325 mg PO Q4H PRN PRN Reason: PAIN LEVEL 1-5 Amlodipine Besylate (Norvasc -) 5 mg PO DAILY [facility] Last Admin: 09/29/18 09:42 Dose: 5 mg Aspirin (Asa -) 81 mg PO DAILY [facility] Last Admin: 09/29/18 09:42 Dose: 81 mg Atorvastatin Calcium (Lipitor -) 10 mg PO HS [facility] Clopidogrel Bisulfate (Plavix -) 75 mg PO DAILY [facility] Last Admin: 09/29/18 09:42 Dose: 75 mg Enoxaparin Sodium (Lovenox -) 40 mg SQ DAILY [facility] Last Admin: 09/29/18 09:42 Dose: 40 mg Lactated Ringer's (Lactated Ringers Solution) 1,000 mls @ 75 mls/hr IV ASDIR [facility] Last Admin: 09/28/18 11:29 Dose: 75 mls/hr Losartan Potassium (Cozaar -) 25 mg PO DAILY [facility] Last Admin: 09/29/18 09:42 Dose: 25 mg Nicotine (Nicoderm Patch -) 14 mg TD DAILY@1800 [facility] Last Admin: 09/28/18 18:15 Dose: 14 mg Non-Formulary Medication (Fluticasone/Salmeterol [Advair Hfa 115-21 Mcg Inhaler] ) 1 inh PO BID [facility] Ondansetron HCl (Zofran Injection) 4 mg IVPUSH Q6H PRN PRN Reason: NAUSEA AND/OR VOMITING Oxycodone HCl (Roxicodone -) 5 mg PO Q4H PRN PRN Reason: PAIN LEVEL 1-5 Last Admin: 09/28/18 23:09 Dose: 5 mg Oxycodone HCl (Roxicodone -) 5 mg PO Q4H PRN PRN Reason: PAIN LEVEL 1-5 Tiotropium [place] (Spiriva Respimat) 2 puff IH DAILY ANDREA GEN: A&O, no acute distress HEENT: moist mucus membranes NECK: supple HEART: RRR, no murmurs noted LUNGS: CTA b/l ABDOMEN: Soft, nontender, normoactive bowel sounds EXTREMITIES: minimal echymoses b/l surgical sites, no bleeding or hematoma, good dopplar DP pulses b/l Laboratory Results - last 24 hr 09/28/18 09/29/18 09/29/18 06:33 05:30 05:30 WBC 11.4 H RBC 3.42 L Hgb 11.8 Hct 33.5 MCV 97.9 H MCH 34.4 H MCHC 35.2 RDW 13.2 Plt Count 257 MPV 7.2 L Sodium 141 Potassium 4.3 Chloride 108 H Carbon Dioxide 28 Anion Gap 5 L BUN 13 Creatinine 0.6 Creat Clearance w eGFR > 60 Random Glucose 101 Calcium 8.3 L Total Bilirubin 0.3 AST 10 L ALT 14 Alkaline Phosphatase 62 Total Protein 5.8 L Albumin 3.0 L Blood Type A NEGATIVE Antibody Screen Positive Antibody Identification Anti-D Antigen Identification No Result Required. Crossmatch See Detail ASSESSMENT/PLAN: POD #1 bilateral endovascular revascularization aorta and b/l iliac arteries with balloon expandable covered stents HTN HLD COPD PAD Smoker OOB to chair No smoking O2 as needed Advair/Spiriva D/C planning Dr Khalil
[2018-09-29] MEDS: LACTATED RINGERS SOLUTION 1,000 ML IV SCH (13:05)
[2018-09-29] MEDS ORDERED: ATORVASTATIN CA 10 MG TABLET (FP) PO SCH (22:00)
--- NOTE | 2018-10-01 14:00 | OP ---
DATE OF OPERATION: 09/28/2018 SURGEON: Niles Tariq MD VP LAB: [facility] [place] PROCEDURES: Percutaneous access of bilateral femoral arteries with ultrasound guidance. Revascularization of the infrarenal aorta and bilateral iliac arteries with balloon-expandable covered stents. Catheterization of aorta and angiography of aorta and bilateral iliac arteries. PREOPERATIVE DIAGNOSIS: Aorto-iliac occlusive disease. POSTOPERATIVE DIAGNOSIS: Aorto-iliac occlusive disease. ANESTHESIA: General. ANESTHESIOLOGIST: Jsesica Abbasi MD FINDINGS: Both femoral arteries were patent. There was severe stenosis with calcified plaque in the distal abdominal aorta and occlusion of the right common iliac artery at its origin. There was reconstitution of the right common iliac artery at the bifurcation with runoff into the right femoral artery without stenosis. The left common iliac artery was narrowed, but patent with distal runoff intact to the femoral artery. OPERATIVE PROCEDURE: Following routine patient identification, general anesthesia was induced. Both groins and abdomen were prepped with ChloraPrep. Timeout was performed. Using real-time duplex imaging, the right common femoral artery was identified. It contained a moderate amount of plaque and had monophasic flow. The artery was cannulated under ultrasound guidance proximal to its bifurcation using ultrasound guidance. A Micropuncture needle was used and a Micropuncture wire was advanced through the needle into the iliac artery under ultrasound guidance. The needle was exchanged for a 5-Greek catheter and then the wire was exchanged for a J-tip wire. The catheter was then exchanged for a 5-Greek sheath. The left femoral artery was accessed in a similar fashion and a 5-Greek sheath placed, as well. An angled wire and catheter were then advanced proximally through the left femoral sheath into the infrarenal aorta and a pigtail catheter advanced over the wire. Angiography was then performed of the abdominal aorta and iliac arteries using a power injector and digital technique. Patient was systemically heparinized. A wire and catheter were then advanced through the right femoral sheath and used to cross the occlusion in the common iliac artery. The wire and catheter were passed into the aorta and contrast was injected through the catheter to confirm intraluminal placement. A long Amplatz wire was then advanced through the catheter and positioned at the aortic arch. Both sheaths were then upsized to an 8-Greek. A 6 x 100-mm balloon was used to dilate the right common iliac artery through the area of occlusion. An 11 x 59-mm VBX stent was then advanced over wire into the distal aorta and positioned to cover the area of calcified plaque extending down to within 1 cm of the aortic bifurcation. The stent was then deployed to nominal pressure using an insufflator. The wire was removed and a 14 x 40-mm balloon was used to dilate the proximal end of the stent. The left femoral wire was then pulled back and directed to within the lumen of the stent and the pigtail catheter replaced over the wire and spun to confirm intraluminal placement. Angiogram of the left iliac artery was then performed to agatha the takeoff of the left iliac artery and measure for length. The pigtail was then transferred to the right side and again angiogram done to agatha the bifurcation of the iliac artery and check for length. Two 8-mm VBX stents were then placed; on the right a 59-mm length was used, on the left a 39-mm length. Both were deployed simultaneously and placed to extend approximately 1 cm into the aortic graft. After simultaneous inflation to nominal pressure, both balloons were removed and a completion angiogram obtained showing patency of the distal aortic stent with good runoff into both iliac arteries and no residual stenosis. Perclose devices were then used to seal the arteriotomies on both sides without complication after removal of the sheaths. Pressure was applied until bleeding ceased and Dermabond glue was applied as a dressing. The patient was then transported to the recovery room in stable condition. NILES TARIQ M.D. [id number]
== END 2018-09-29 13:45 | disposition home or self-care (01) | DRG 253 ==
LOC: JSAMEDAYSX 06:07 → JICU 10:31
PROVIDERS: ADMIT Surgery; ATTEND Surgery
PROC: 047D341 Dilation of Left Common Iliac Artery with Drug-eluting Intraluminal Device, using Drug-Coated Balloon, Percutaneous Approach (ICD-10-PCS; 2018-09-28)
PROC: 047C3Z1 Dilation of Right Common Iliac Artery using Drug-Coated Balloon, Percutaneous Approach (ICD-10-PCS; 2018-09-28)
PROC: B40GYZZ Plain Radiography of Left Lower Extremity Arteries using Other Contrast (ICD-10-PCS; 2018-09-28)
PROC: B40FYZZ Plain Radiography of Right Lower Extremity Arteries using Other Contrast (ICD-10-PCS; 2018-09-28)
PROC: B400YZZ Plain Radiography of Abdominal Aorta using Other Contrast (ICD-10-PCS; 2018-09-28)
PROC: 047 Lower Arteries, Dilation (ICD-10-PCS; principal; 2018-09-28 08:00)
DX: I74.09 Other arterial embolism and thrombosis of abdominal aorta (principal); I74.5 Embolism and thrombosis of iliac artery; I35.0 Nonrheumatic aortic (valve) stenosis; I70.293 Other atherosclerosis of native arteries of extremities, bilateral legs; J44.9 Chronic obstructive pulmonary disease, unspecified; I10 Essential (primary) hypertension; E78.5 Hyperlipidemia, unspecified; F17.210 Nicotine dependence, cigarettes, uncomplicated; I70.291 Other atherosclerosis of native arteries of extremities, right leg
CPT/HCPCS: 36415; 76000-TC-FY; 80053; 85027; 86850; 86870; 86900; 86901; 86902; 86922; J1644

== ENCOUNTER 2021-03-03 10:39 | Emergency (ER) | payer OTHER, MEDICARE ==
[2021-03-03 11:13] VITALS: BMI 17.2
[2021-03-03 12:41] VITALS: BP 115/62; PULSE 72; TEMP 97.2
[2021-03-03] MEDS ORDERED: ONDANSETRON *ODT* 4 MG TABLET SL ONE (12:43)
[2021-03-03] MEDS ORDERED: ONDANSETRON *ODT* 4 MG TABLET ONE (12:58)
== END 2021-03-03 14:59 | disposition home or self-care (01) ==
LOC: JER 10:39
DX: R42 Dizziness and giddiness (principal)
CPT/HCPCS: 70450-TC; 93005; 93010; 99284-25; Q0162

== ENCOUNTER 2021-10-28 10:27 | Emergency (ER) | payer OTHER, MEDICARE ==
[2021-10-28 10:57] VITALS: BP 130/68; PULSE 80; TEMP 97.9; BMI 16.6
[2021-10-28] MEDS ORDERED: ACETAMINOPHEN 500 MG TABLET (FP) PO ONE (12:11)
[2021-10-28] MEDS ORDERED: ACETAMINOPHEN 325 MG TABLET (FP) ONE (12:15)
[2021-10-28] MEDS ORDERED: KETOROLAC TROMETHAMINE 15 MG/ML VIAL IM ONE (14:08)
[2021-10-28] MEDS ORDERED: KETOROLAC TROMETHAMINE 30 MG/1 ML VIAL ONE (14:10)
== END 2021-10-28 14:28 | disposition home or self-care (01) ==
LOC: JER 10:27
DX: R07.89 Other chest pain (principal); R91.8 Other nonspecific abnormal finding of lung field
CPT/HCPCS: 71046-TC-FY; 71101-TC-RT-FY; 71250-TC; 99284-25

== ENCOUNTER 2023-07-21 08:05 | Day surgery (SDC) | payer OTHER, MEDICARE ==
[2023-07-20 14:31] VITALS: BMI 16.6
[2023-07-21] MEDS ORDERED: FENTANYL CITRATE/PF 50 MCG/ML VIAL ONE (09:46)
[2023-07-21] MEDS ORDERED: FENTANYL CITRATE/PF 50 MCG/ML VIAL IVPUSH ONE (11:30)
[2023-07-21 11:31] VITALS: TEMP 97.8
[2023-07-21 14:51] VITALS: BP 104/52; PULSE 79; RESP 18
== END 2023-07-21 15:05 | disposition home or self-care (01) ==
LOC: JRADIR 08:05
PROVIDERS: ATTEND Specialist
PROC: 0BDJ4ZX Extraction of Left Lower Lung Lobe, Percutaneous Endoscopic Approach, Diagnostic (ICD-10-PCS; principal; 2023-07-21)
DX: R91.8 Other nonspecific abnormal finding of lung field (principal)
CPT/HCPCS: 32408; 71046-TC-FY; 77012-TC; G0463